=== PATIENT | female | born 1975 | race Caucasian/White ===

== ENCOUNTER 2025-03-03 23:42 | Emergency (ER) | payer BC, OTHER ==
[~2025-03-03] VITALS: Ht 167.6 cm; Wt 99.8 kg
[2025-03-03 23:42] VITALS: BP 178/84
[~2025-03-03 23:42] MED LIST: LIPITOR PO; METFORMIN PO; METOPROLOL PO
[2025-03-04] MEDS ORDERED: ALPR1TAB2 PO (00:10)
[2025-03-04] MEDS ORDERED: GLIM4TAB37 PO (00:10)
[2025-03-04 00:19] VITALS: BP 178/84; O2SAT 98
== END 2025-03-04 00:21 | disposition home or self-care (01) ==
LOC: ER 23:57
DX: H92.01 Otalgia, right ear (principal); Z76.0 Encounter for issue of repeat prescription; E11.9 Type 2 diabetes mellitus without complications; E78.5 Hyperlipidemia, unspecified; F41.1 Generalized anxiety disorder; Z79.84 Long term (current) use of oral hypoglycemic drugs; Z88.0 Allergy status to penicillin; Z88.5 Allergy status to narcotic agent
CPT/HCPCS: A4606; A4663